=== PATIENT | female | born 1995 | race American Indian/Alaskan Native ===

== ENCOUNTER 2018-11-19 20:20 | Outpatient (CLI) | payer MEDICAID | END 2018-11-20 00:45 | disposition home or self-care (01) | LOC: TRG 20:20 | CPT/HCPCS: 59025 ==

== ENCOUNTER 2018-11-26 11:22 | Inpatient (IN) | payer MEDICAID ==
[2018-11-26] MEDS ORDERED: LACTATED RINGERS 1,000 ML ONE (13:06)
[2018-11-26] MEDS ORDERED: LACTATED RINGERS 1,000 ML IV ONE ×2 (13:18→13:19)
[2018-11-26] MEDS ORDERED: AMPICILLIN/NS 1 GM/50 ML 1 GM/50 ML BAG IV SCH (14:00)
[2018-11-26] MEDS ORDERED: PITOCin/NS 30 UNIT/500ML 30 UNITS/500 ML BAG IV SCH (14:00)
[2018-11-26] MEDS ORDERED: LACTATED RINGERS 1,000 ML IV SCH (14:00)
[2018-11-26] MEDS ORDERED: AMPICILLIN/NS 2 GM/100 ML 2 GM/100 ML BAG IV ONE (14:20)
[2018-11-26] MEDS ORDERED: SUBLIMAZE IV ONE (14:25)
[2018-11-26 16:03] LABS: Basophils % (Auto) 0.3 % (0.0-1.8); Eosinophils % (Auto) 0.2 % (0.0-4.3); Hematocrit 39.4 % (30.3-42.9); Hemoglobin 13.1 gm/dl (10.1-14.3); Lymphocytes # (Auto) 0.9 K/mm3 (1.2-5.4); Lymphocytes % (Auto) 12.5 % (13.4-35.0); Mean Corpuscular HGB Conc 33 % (30-34); Mean Corpuscular Volume 87 fl (79-97); Monocytes # (Auto) 0.4 K/mm3 (0.0-0.8); Monocytes % (Auto) 5.1 % (0.0-7.3); Red Blood Count 4.52 M/mm3 (3.65-5.03)
[2018-11-26 16:05] LABS: Platelet Count 198 K/mm3 (140-440)
[2018-11-26] MEDS ORDERED: NARCAN 2 MG/2 ML IV PRN (16:14)
--- NOTE | 2018-11-26 16:16 | Anesthesia Day of Surgery ---
Anesthesia Day of Surgery - Day of Surgery Patient Examined: Yes Patient H&P Reviewed: No (not available) Patient is NPO: Yes Beta Blockers: No Cardiac Clearance: No Pulmonary Clearance: No Juan Diego's Test: N/A
--- NOTE | 2018-11-26 16:17 | Anesthesia Consultation ---
Anesthesia Consult and Med Hx - Airway Anesthetic Teeth Evaluation: Good ROM Head & Neck: Adequate Mental/Hyoid Distance: Adequate Mallampati Class: Class I Intubation Access Assessment: Good - Pulmonary Exam CTA: Yes - Cardiac Exam Cardiac Exam: RRR - Pre-Operative Health Status ASA Pre-Surgery Classification: ASA2 Proposed Anesthetic Plan: Epidural - Pulmonary Hx Asthma: No COPD: No Hx Pneumonia: No - Cardiovascular System Hx Hypertension: No - Central Nervous System Hx Seizures: No Hx Psychiatric Problems: No - Endocrine Hx Renal Disease: No Hx End Stage Renal Disease: No Hx Hypothyroidism: No Hx Hyperthyroidism: No - Hematic Hx Anemia: No Hx Sickle Cell Disease: No - Other Systems Hx Alcohol Use: No
[2018-11-26] MEDS ORDERED: LIDOCAINE 1.5%/EPI 1:200,000 INFILTRATI ONE (16:20)
[2018-11-26] MEDS ORDERED: MARCAINE 0.25% INFILTRATI ONE (16:21)
[2018-11-26] MEDS ORDERED: fentaNYL-BUPIV 2 MCG/ML-0.125% 200 MCG/100 ML BAG EPIDURAL SCH (17:00)
[2018-11-26] MEDS ORDERED: PITOCin/NS 20 UNIT/1000ML DRIP 20,000 MILLIUNITS/1,000 ML BAG IV ONE ×2 (19:41→23:21)
--- NOTE | 2018-11-26 20:39 | History and Physical Report ---
History of Present Illness Date of examination: 11/26/18 Date of admission: 11/26/18 13:06 Chief complaint: contractions History of present illness: 23y/o @ 40+1 weeks presents with regular painful contractions and cervical dilation of 5cm. The patient denies leakage of fluid. Patient is a transfer of care @ 34 weeks. The patient is GBS positive. Past History Past Medical History: no pertinent history Past Surgical History: appendectomy, other (hernia repair) Social history: - Obstetrical History Expected Date of Delivery: 11/25/18 Actual Gestation: 40 Week(s) 1 Day(s) : 1 Para: 0 Hx # Term Pregnancies: 0 Number of Pregnancies: 0 Spontaneous Abortions: 0 Induced : 0 Number of Living Children: 0 Medications and Allergies Allergies Allergy/AdvReac Type Severity Reaction Status Date / Time No Known Allergies Allergy Verified 11/19/18 22:39 Home Medications Medication Instructions Recorded Confirmed Last Taken Type Vit,Calc76/Iron/Folic 1 tab PO DAILY 11/19/18 11/19/18 11/19/18 History [Pnv 29-1 Tablet] Active Meds: Active Medications Ephedrine Sulfate (Ephedrine Sulfate) 10 mg IV Q2M PRN PRN Reason: Hypotension Ampicillin Sodium (Ampicillin/Ns 1 Gm/50 Ml) 1 gm in 50 mls @ 100 mls/hr IV Q4H CHASITY; Protocol Oxytocin/Sodium Chloride (Pitocin/Ns 30 Unit/500ml) 30 units in 500 mls @ 4 mls/hr IV TITR CHASITY; Protocol Lactated Ringer's (Lactated Ringers) 1,000 mls @ 125 mls/hr IV DIRECT CHASITY Fentanyl/Bupivacaine/Sodium Chlor (Fentanyl-Bupiv 2 Mcg/Ml-0.125%) 200 mcg in 100 mls @ 12 mls/hr EPIDURAL TITR CHASITY; Protocol Last Admin: 11/26/18 17:09 Dose: 12 mls/hr Documented by: Naloxone HCl (Narcan 2 Mg/2 Ml) 0.2 mg IV Q5M PRN PRN Reason: Respiratory sedation Review of Systems All systems: negative Genitourinary: contractions, no leakage of fluid - Vital Signs Vital signs: Vital Signs Pulse BP 91 H 119/69 11/26/18 11:39 11/26/18 11:39 Temp Pulse Resp BP Pulse Ox 98.5 F 137 H 20 126/87 100 11/26/18 12:05 11/26/18 20:34 11/26/18 12:05 11/26/18 20:34 11/26/18 20:32 - Physical Exam Breasts: Positive: deferred Cardiovascular: Regular rate Lungs: Positive: Clear to auscultation Abdomen: Positive: normal appearance Results Result Diagrams: 11/26/18 13:25 Abnormal lab results 11/26/18 Range/Units 13:25 RDW 13.0 L (13.2-15.2) % Lymph % (Auto) 12.5 L (13.4-35.0) % Lymph # 0.9 L (1.2-5.4) K/mm3 Seg Neutrophils % 81.9 H (40.0-70.0) % All other labs normal. Assessment and Plan - Patient Problems (1) Active labor at term Current Visit: Yes Status: Acute Plan to address problem: admit to L&D initiate antibiotics
[2018-11-26] MEDS ORDERED: MINERAL OIL PO ONE (21:39)
[2018-11-26] MEDS ORDERED: MINERAL OIL ONE (21:39)
--- NOTE | 2018-11-26 22:47 | Procedure Note ---
OB Delivery Note - Delivery Date of Delivery: 11/26/18 Surgeon: JACOB POZO Estimated blood loss: 200cc - Vaginal Delivery presentation: vertex Delivery position: OA Intrapartum events: other(please specify) Delivery monitor: external FHT, internal uterine Route of delivery: Delivery placenta: spontaneous Delivery cord: nuchal cord, 3 umbilical vessels Episiotomy: none Delivery laceration: 1st degree Anesthesia: epidural Delivery comments: Patient progressed to C/C/+1 and pushed to deliver a liveborn male with apgars 8/9. After delivery of the head, a nuchal cord was manually reduced. The shoulder delivered and the infant was then bulb suctioned. The cord was clamped and cut and the placed on the patient's abdomen. The placenta delivered spontaneously intact with a 3VC. Patient sustained a first degree laceration left unrepaired. Weight 7lbs 10oz. EBL 200ml. - A at 1 minute: 8 at 5 minutes: 9 Infant Gender: Male (weight 7lbs 10oz)
[2018-11-26] MEDS ORDERED: MILK OF MAGNESIA PO PRN (22:48)
[2018-11-26] MEDS ORDERED: DULCOLAX PR PRN (22:48)
[2018-11-26] MEDS ORDERED: NORCO 5/325 PO PRN (22:48)
[2018-11-26] MEDS ORDERED: ZOFRAN IV PRN (22:48)
[2018-11-26] MEDS ORDERED: PHENERGAN PR PRN (22:48)
[2018-11-26] MEDS ORDERED: TUCKS PAD TP PRN (22:48)
[2018-11-26] MEDS ORDERED: TYLENOL PO PRN (22:48)
[2018-11-26] MEDS ORDERED: PHENERGAN PO PRN (22:48)
[2018-11-26] MEDS ORDERED: BENADRYL PO PRN (22:48)
[2018-11-26] MEDS ORDERED: LANSINOH TP PRN (22:48)
[2018-11-26] MEDS ORDERED: SODIUM CHLORIDE FLUSH SYRINGE 10 ML IV NR (23:00)
[2018-11-27] MEDS: IBUPROFEN PO SCH ×3 (06:25→17:49)
--- NOTE | 2018-11-27 08:06 | Progress Note ---
Assessment and Plan A/P PPD1 s/p routine orders close attention to maternal status Subjective - Subjective Date of service: 11/27/18 Principal diagnosis: s/p Patient reports: appetite normal, voiding normally, pain well controlled, flatus, ambulating normally [place]: doing well Objective - Vital Signs Latest vital signs: Vital Signs Temp Pulse Resp BP BP Pulse Ox 11/27/18 00:05 85 133/62 11/26/18 23:50 83 134/62 11/26/18 23:34 93 H 134/67 11/26/18 23:19 82 136/74 11/26/18 23:05 93 H 119/58 11/26/18 22:50 105 H 132/64 11/26/18 22:34 116 H 135/83 11/26/18 22:27 98 11/26/18 22:25 118 H 94 11/26/18 22:22 119 H 96 11/26/18 22:20 65 82 L 11/26/18 22:19 122 H 142/81 11/26/18 22:17 110 H 96 11/26/18 22:15 88 93 11/26/18 22:12 114 H 96 11/26/18 22:10 53 L 94 11/26/18 22:07 106 H 97 11/26/18 22:05 106 H 141/86 11/26/18 22:02 153 H 97 11/26/18 21:57 146 H 99 11/26/18 21:52 98 H 98 11/26/18 21:51 101 H 127/59 11/26/18 21:47 105 H 97 11/26/18 21:46 88 90 11/26/18 21:42 107 H 98 11/26/18 21:37 129 H 98 11/26/18 21:36 103 H 135/71 11/26/18 21:32 115 H 100 11/26/18 21:27 96 H 98 11/26/18 21:22 128 H 98 11/26/18 21:19 89 134/81 11/26/18 21:17 105 H 99 11/26/18 21:12 126 H 100 11/26/18 21:07 98 H 100 11/26/18 21:05 100 H 130/59 11/26/18 21:02 101 H 100 11/26/18 20:57 104 H 100 11/26/18 20:52 115 H 100 11/26/18 20:49 89 136/80 11/26/18 20:47 101 H 99 11/26/18 20:42 98 H 100 11/26/18 20:37 109 H 100 11/26/18 20:34 137 H 126/87 11/26/18 20:32 146 H 100 11/26/18 20:27 118 H 99 11/26/18 20:22 109 H 100 11/26/18 20:19 117 H 122/66 11/26/18 20:17 104 H 100 11/26/18 20:12 127 H 100 11/26/18 20:07 114 H 100 11/26/18 20:04 113 H 129/58 11/26/18 20:02 111 H 100 11/26/18 19:57 110 H 100 11/26/18 19:52 107 H 100 11/26/18 19:50 100 H 133/73 11/26/18 19:47 120 H 100 11/26/18 19:42 103 H 99 11/26/18 19:37 96 H 100 11/26/18 19:36 99 H 116/72 11/26/18 19:32 97 H 100 11/26/18 19:27 88 100 11/26/18 19:22 92 H 100 11/26/18 19:19 92 H 110/56 11/26/18 19:17 89 100 11/26/18 19:12 89 99 11/26/18 19:07 84 100 11/26/18 19:04 87 109/58 11/26/18 19:02 84 100 11/26/18 18:57 79 100 11/26/18 18:52 84 100 11/26/18 18:50 85 111/57 11/26/18 18:47 84 100 11/26/18 18:42 99 H 100 11/26/18 18:37 119 H 100 11/26/18 18:34 98 H 120/65 11/26/18 18:32 91 H 100 11/26/18 18:27 81 100 11/26/18 18:22 96 H 100 11/26/18 18:20 87 118/62 11/26/18 18:17 91 H 100 11/26/18 18:12 100 H 100 11/26/18 18:07 108 H 100 11/26/18 18:04 102 H 103/60 11/26/18 18:02 99 H 100 11/26/18 17:57 115 H 100 11/26/18 17:55 113 H 110/68 11/26/18 17:52 116 H 100 11/26/18 17:47 100 H 100 11/26/18 17:42 113 H 100 11/26/18 17:37 116 H 100 11/26/18 17:35 115 H 105/77 11/26/18 17:32 97 H 100 11/26/18 17:27 99 H 100 11/26/18 17:22 110 H 111/63 100 11/26/18 17:17 103 H 112/64 100 11/26/18 17:12 117 H 114/69 100 11/26/18 17:08 115 H 122/69 11/26/18 17:07 106 H 100 11/26/18 17:02 94 H 113/68 100 11/26/18 16:58 103 H 116/67 11/26/18 16:57 99 H 100 11/26/18 16:53 104 H 122/57 11/26/18 16:52 113 H 98 11/26/18 16:49 127 H 113/58 11/26/18 16:42 129/67 11/26/18 16:37 100 H 128/66 11/26/18 16:36 100 11/26/18 16:28 110 H 81 L 11/26/18 12:45 112 H 135/65 11/26/18 12:05 98.5 F 91 H 20 119/69 100 11/26/18 11:39 91 H 119/69 Intake and Output 11/26/18 11/27/18 11/27/18 23:59 07:59 15:59 Output Total 1700 Balance -1700 Output: Urine 1700 Void 1700 Other: Total, Output Amount 900 # Voids Void 1 Estimated Blood Loss 200 - Exam Breasts: Present: normal Cardiovascular: Present: Regular rate, Normal S1 Lungs: Present: Clear to auscultation, Normal air movement Abdomen: Present: normal appearance, soft, normal bowel sounds. Absent: distention, tenderness, guarding Uterus: Present: normal, firm, fundal height below umbilicus. Absent: boggin ess, tenderness Extremities: Present: normal Deep Tendon Reflex Grade: Normal +2 - Labs Labs: Abnormal lab results 11/26/18 Range/Units 13:25 RDW 13.0 L (13.2-15.2) % Lymph % (Auto) 12.5 L (13.4-35.0) % Lymph # 0.9 L (1.2-5.4) K/mm3 Seg Neutrophils % 81.9 H (40.0-70.0) %
[2018-11-27 11:05] LABS: Hematocrit 33.8 % (30.3-42.9); Hemoglobin 11.3 gm/dl (10.1-14.3)
[2018-11-27] MEDS ORDERED: PITOCin/NS 20 UNIT/1000ML DRIP 20 UNITS/1,000 ML BAG IV SCH (21:40)
--- NOTE | 2018-11-28 08:16 | Discharge Summary ---
Providers - Providers Date of Admission: 11/26/18 13:06 Date of discharge: 11/28/18 Attending physician: JACOB POZO Primary care physician: BUFFY NGUYEN MD Hospitalization Reason for admission: active labor Delivery: Discharge diagnosis: IUP at term delivered Hospital course: Patient admitted in active labor. Had a . uncomplicated Condition at discharge: Good Disposition: DC-01 TO HOME OR SELFCARE - Discharge Diagnoses (1) Active labor at term Status: Acute Plan - Discharge Medications Prescriptions: Ferrous Sulfate 325 mg PO BID #60 tablet. Ibuprofen [Motrin] 600 mg PO Q8H PRN #30 tablet PRN Reason: Pain oxyCODONE /ACETAMINOPHEN [Percocet 5/325] 1 tab PO Q6HR PRN #30 tablet PRN Reason: Pain - Provider Discharge Summary Activity: no sex for 6 weeks, no heavy lifting 4 weeks, no strenuous exercise Diet: routine Instructions: routine Additional instructions: [] Smoking cessation referral if applicable(refer to patient education folder for contact #) [] Refer to [facility] Booklet Call your doctor immediately for: * Fever > 100.5 * Heavy vaginal bleeding ( >1 pad per hour) * Severe persistent headache * Shortness of breath * Reddened, hot, painful area to leg or breast * schedule visit in 4 weeks - Follow up plan
[2018-11-28 14:59] VITALS: BP 118/81
== END 2018-11-28 13:45 | disposition home or self-care (01) | DRG 775 ==
LOC: TRG 11:22 → LD 13:06 → OB 11-27 00:32
PROVIDERS: ADMIT Obstetrics & Gynecology; ATTEND Obstetrics & Gynecology
PROC: 10E0XZZ Delivery of Products of Conception, External Approach (ICD-10-PCS; principal; 2018-11-26)
PROC: 3E0R3BZ Introduction of Anesthetic Agent into Spinal Canal, Percutaneous Approach (ICD-10-PCS; 2018-11-26)
PROC: 00HU33Z Insertion of Infusion Device into Spinal Canal, Percutaneous Approach (ICD-10-PCS; 2018-11-26)
DX: O99.824 Streptococcus B carrier state complicating childbirth (principal); O69.81X0 Labor and delivery complicated by cord around neck, without compression, not applicable or unspecified; Z3A.40 40 weeks gestation of pregnancy; Z37.0 Single live birth; Z90.49 Acquired absence of other specified parts of digestive tract; O70.0 First degree perineal laceration during delivery
CPT/HCPCS: 36415; 59025; 85014; 85018; 85025; 86592; 86850; 86900; 86901; G0378; J0290; J2590; J3010; J7120